=== PATIENT | female | born 1995 | race Caucasian/White ===

== ENCOUNTER → 2016-06-03 | Outpatient (CLI) | payer OTHER ==
--- NOTE | 2016-06-03 12:50 | REP ---
OBSTETRIC SONOGRAPHY: HISTORY: Supervision of , followup anatomy. FINDINGS: Scanning through the gravid uterus demonstrates a viable single intrauterine gestation in a cephalic lie. motion is observed and heart rate is recorder 144 beats per minute. A grade 0 posterior placenta is seen without evidence of previa or abruption. Amniotic fluid is subjectively normal. Closed cervical length is 3.5 cm. No extrauterine abnormality is observed. There has been appropriate interval growth. Facial profile is seen and appears normal but nose and lips are less than optimally seen today. Similarly, we were unable to adequately visualized four-chamber heart and outflow tract views today. The following additional anatomic structures are identified and felt to be sonographically unremarkable: cranium, choroid plexus, cavum, cerebellum and posterior fossa, lungs, diaphragm, left-sided stomach, abdominal wall cord insertion, three-vessel umbilical cord, kidneys and bladder, spine, upper and lower extremities. Biometry Chart: BPD 5.0 cm = 21 weeks 1 day HC 18.3 cm = 20 weeks 5 days AC 15.8 cm = 20 week 6 days FL 3.5 cm = 21 weeks 1 day HL 3.5 cm = 21 weeks 6 days CD 2.2 cm = 20 weeks 5 days HC/AC ratio normal 1.16. Cephalic index normal 0.77. Estimated weight 392 grams, 0 pounds 13 ounces, 60th percentile for 20 weeks 4 days. IMPRESSION: Viable single intrauterine gestation at 21 weeks 1 day by today's composite sonographic criteria. Expected gestational age estimate based on prior sonography is 20 weeks 4 days. STEPHANIE by prior sonography October 17, 2016. Signed by Moses Avila MD 06/03/2016 01:37 P
== END | disposition home or self-care (01) ==
LOC: M RAD 10:11
PROVIDERS: ATTEND Specialist
DX: Z34.82 Encounter for supervision of other normal pregnancy, second trimester (principal); Z36 Encounter for antenatal screening of mother; Z3A.20 20 weeks gestation of pregnancy

== ENCOUNTER → 2016-06-27 | Outpatient (CLI) | payer OTHER ==
--- NOTE | 2016-06-28 02:47 | REP ---
Clinical: Anatomical evaluation. Comparison: 06/03/2016 . Findings: Examination demonstrates a single live intrauterine in variable presentation. motion is identified by technologist. Placenta is noted posterior fundally and grade zero without evidence for placenta previa or abruption. Amniotic fluid volume is normal. Cervix measures 4.0 cm in length and appears closed. No evidence for nuchal cord. Gestational age by LMP 24 weeks 0 days with STEPHANIE 10/17/2016 . Gestational age by current measurements 24 weeks 4 days with STEPHANIE 10/13/2016 . FHR equals 144 beats per minute. Estimated weight 735 grams ( 68th percentile). Anatomical assessment demonstrates normal structures including cranium, choroid plexus, cavum, cerebellum/posterior fossa, facial features, lungs, diaphragm, stomach, cord insertion/three-vessel cord, kidneys/bladder, spine, and extremities. Impression: Single live intrauterine in variable presentation demonstrating appropriate interval growth. Limited evaluation of the heart and left ventricular outflow tract again noted. Remainder of the anatomical assessment is complete and normal. Signed by Lucian Rocha MD 06/28/2016 02:39 A
== END | disposition home or self-care (01) ==
LOC: M RAD 18:02
PROVIDERS: ATTEND Specialist
DX: Z34.82 Encounter for supervision of other normal pregnancy, second trimester (principal); Z36 Encounter for antenatal screening of mother; Z3A.24 24 weeks gestation of pregnancy

== ENCOUNTER → 2016-07-16 | Outpatient (CLI) | payer OTHER ==
--- NOTE | 2016-07-17 08:38 | REP ---
OBSTETRIC SONOGRAPHY: HISTORY: Supervision of for anatomy at 26 weeks. Comparison sonography July 07, 2016. TODAY'S SONOGRAPHIC FINDINGS: Scanning through the gravid uterus demonstrates a viable single intrauterine gestation in a cephalic lie. motion is observed and heart rate is recorder 150 beats per minute. A posterior grade 0 placenta is seen without evidence of previa or abruption. Amniotic fluid is subjectively normal. Closed cervical length is 4.0 cm, measured transabdominally. No extrauterine abnormality is observed. There has been appropriate interval growth. No anomaly is seen. spine is less than optimally seen today due to position but was previously visualized. The following additional anatomic structures are identified today and felt to be sonographically unremarkable: cranium, choroid plexus, cavum, cerebellum and posterior fossa, nuchal fold, face and profile, lungs, four-chamber heart with left and right ventricular outflow tract views, diaphragm, left-sided stomach, abdominal wall cord insertion, three-vessel umbilical cord, kidneys and bladder, upper and lower extremities. Biometry Chart: BPD 6.8 cm = 27 weeks 3 days HC 25.0 cm = 27 weeks 1 day ACl 23.0 cm = 27 weeks 3 days FL 5.1 cm = 27 weeks 2 days HL 4.8 cm = 28 weeks 2 days HC/AC ratio normal 1.09. Cephalic index normal 0.76. Estimated weight 1059 grams, 2 pounds 5 ounces, 59th percentile for 26 weeks 5 days. IMPRESSION: Viable single intrauterine gestation at 27 weeks 3 days by today's composite sonographic criteria. Expected gestational age estimate based on prior sonography is 26 weeks 5 days. STEPHANIE by prior sonography October 17, 2016. anatomic survey is felt to be complete in conjunction with the prior study. Signed by Moses Avila MD 07/17/2016 02:47 P
== END ==
LOC: M RAD 16:04
PROVIDERS: ATTEND Specialist
DX: Z34.83 Encounter for supervision of other normal pregnancy, third trimester (principal); Z36 Encounter for antenatal screening of mother; Z3A.27 27 weeks gestation of pregnancy

== ENCOUNTER → 2016-07-30 | Outpatient (CLI) | payer OTHER ==
[2016-07-30 15:35] LABS: BASO % 0.1 % (0.0-1.0); EOS # 0.1 K/mm3 (0.0-0.50); LARGE UNSTAINED CELL # 0.1 K/mm3 (0.0-0.4); LARGE UNSTAINED CELL % 1.5 % (0.0-4.0); LYMPH # 1.9 K/mm3 (1.5-6.5); LYMPH % 24.6 % (24.0-44.0); MEAN CORPUSCULAR HEMOGLOBIN 31.7 pg (27.0-33.0); MEAN CORPUSCULAR HGB CONC 34.3 g/dl (32.0-36.5); MEAN CORPUSCULAR VOLUME 92.6 fl (80.0-96.0); MONO # 0.3 K/mm3 (0.0-0.8); MONO % 4.2 % (0.0-5.0); NEUTROPHILS % 68.5 % (36.0-66.0); PLATELET COUNT, AUTOMATED 211 k/mm3 (150-450); WHITE BLOOD COUNT 7.4 K/mm3 (4.0-10.0)
== END ==
LOC: M SMT 12:59
PROVIDERS: ATTEND Specialist
DX: Z34.83 Encounter for supervision of other normal pregnancy, third trimester (principal); Z36 Encounter for antenatal screening of mother; Z3A.00 Weeks of gestation of pregnancy not specified

== ENCOUNTER 2016-08-21 11:40 | Observation (INO) | payer OTHER ==
[2016-08-21] VITALS (7 sets, daily range): BP systolic 115–158; BP diastolic 61–89
[~2016-08-21] VITALS: Ht 160 cm; Wt 103.0 kg
[2016-08-21] MEDS ORDERED: TYLE325T5 PO (11:48)
[2016-08-21] MEDS ORDERED: PRENTAB9 PO (11:48)
[2016-08-21] MEDS ORDERED: LR 1,000 ML IV SCH (12:38)
[2016-08-21] MEDS ORDERED: PERCOCET 5MG/325MG TAB PO PRN (12:45)
--- NOTE | 2016-08-21 14:40 | REP ---
RENAL ULTRASOUND: Real-time sonographic evaluation of the kidneys is performed. The kidneys are normal in size and echotexture, right kidney measuring 12.6 x 4.9 x 5.8 cm and the left kidney 13.3 x 6.6 x 7.4 cm. There is no hydronephrosis on the right. Questionable subcentimeter intrarenal calculus is seen in the lower pole of the right kidney. Left kidney demonstrates moderate hydronephrosis. Calculus is seen on the left lower pole collecting system measuring approximately 5 x 7 mm. Questionable subcentimeter stone is seen in the proximal left ureter. The urinary bladder is empty. Attempts were made to visualize the bladder and distal ureters with endovaginal ultrasound, but this region is not well visualized. IMPRESSION: Moderate left hydronephrosis. Subcentimeter stone left lower pole collecting system. Questionable subcentimeter stone proximal left ureter. Signed by Michael Jauregui MD 08/21/2016 05:40 P
[2016-08-21] MEDS ORDERED: PROMETHAZINE INJ 25 MG/ML VIAL (J2550) IV ONE (16:00)
[2016-08-21] MEDS ORDERED: BUTORPHANOL 2 MG/ML INJ (J0595) IV ONE (16:00)
--- NOTE | 2016-08-21 16:23 | HPE ---
DATE OF ADMISSION: 08/21/2016 21-year-old, 1 female at 31 and 6/7 weeks gestation by last menstrual period and consistent with 7 week ultrasound, estimated date of confinement (EDC) of 10/17/2016, presents with one week of intermittent sharp left sided upper abdominal pain that radiates down to her groin. She also has pain in her left flank area. The pain became increasingly severe, which caused her to present to the hospital. When the pain becomes severe, she vomits due to severe pain. She denies fever or chills. She has never had this pain before. MEDICAL HISTORY: Noncontributory. SURGICAL HISTORY: Tonsillectomy in 2011. SOCIAL HISTORY: The patient is . She denies cigarettes or alcohol during . She did use E-cigarettes prior to . FAMILY HISTORY: Noncontributory. PHYSICAL EXAMINATION: Blood pressure 128/75, pulse 105, temperature 98.1, respiratory rate 20. She appears uncomfortable. HEAD AND NECK EXAM: Normal. LUNGS: Clear. HEART: Regular rate and rhythm. ABDOMEN: Nontender. She has pain in her left flank, costovertebral angle tenderness. There is tenderness in her left upper abdomen at the mid axillary line. The uterus is nontender. heart tones are category 1. Cervix is long, closed, posterior. No contractions. EXTREMITIES: Nontender. LABORATORY DATA: Blood type O positive, Rubella immune. RPR nonreactive. Hepatitis B and C negative. White blood count 6.9. Ultrasound shows moderate hydronephrosis of the left kidney with 5 to 7 mm stone in the inferior pole of the left kidney and possible stone in the proximal ureter. ASSESSMENT: 21-year-old 1, para 0 female at 31 and 6/7 weeks gestation with symptomatic nephrolithiasis on the left. PLAN: IV hydration, as well as pain management. Dr. Faulkner from urology has been consulted to consider possible nephrostomy tube for relief of renal obstruction. The patient will be admitted at this point for pain control.
[2016-08-21] MEDS ORDERED: BUTORPHANOL 2 MG/ML INJ (J0595) IV PRN (17:15)
[2016-08-21] MEDS ORDERED: PROMETHAZINE INJ 25 MG/ML VIAL (J2550) IV PRN (17:15)
[2016-08-21] MEDS ORDERED: cefTRIAXone SOD 1 GM VIAL (J0696) IM SCH (17:15)
[2016-08-21] MEDS ORDERED: ACETAMINOPHEN TAB 650MG DOSE (2X325MG) PO PRN (17:15)
[2016-08-21] MEDS: cefTRIAXone SOD 1 GM in D5W MINI-BAG PLUS 50 ML IV SCH (18:23)
[2016-08-21] MEDS: DOCUSATE SODIUM 100 MG CAP PO SCH (20:48)
[2016-08-22 06:19] VITALS: BP 118/64
[2016-08-22] MEDS: DOCUSATE SODIUM 100 MG CAP PO SCH ×2 (07:25→20:20)
[2016-08-22] MEDS: LR 1,000 ML IV SCH ×3 (09:15→20:20)
[2016-08-22] MEDS ORDERED: LACTATED RINGER'S 1000 ML IV ONE (09:15)
--- NOTE | 2016-08-22 09:44 | REP ---
RENAL AND BLADDER ULTRASOUND: Real-time sonographic evaluation of kidneys performed. Kidneys are normal in size and echotexture, right kidney measuring 12.6 x 6.7 x 7.0, and left kidney 13.8 x 7.3 x 5.9 cm. There is mild right hydronephrosis. There is no right-sided nephrolithiasis seen. There is stable moderate left hydronephrosis. Calculus is again seen in the lower pole of the left renal collecting system. Duplex Doppler evaluation demonstrates resistive index right kidney 0.63 and left kidney 0.74. Urinary bladder is minimally distended. There appears to be a subcentimeter calculus at the left ureterovesical junction. With Doppler color evaluation, there is a left ureteral jet present indicating that the left ureter is not completely obstructed. IMPRESSION: Mild right hydronephrosis. No change in moderate left hydronephrosis. Calculus seen at the left ureterovesical junction. There is a left ureteral jet noted indicating that there is not complete ureteral obstruction. Signed by Michael Jauregui MD 08/22/2016 04:50 P
[2016-08-22 16:55] VITALS: BP 129/71
[2016-08-22] MEDS: cefTRIAXone SOD 1 GM in D5W MINI-BAG PLUS 50 ML IV SCH (19:04)
[2016-08-22 20:00] VITALS: BP 144/66
[2016-08-23] VITALS: BP 130/67
[2016-08-23] MEDS: LR 1,000 ML IV SCH ×3 (00:56→10:15)
[2016-08-23 04:00] VITALS: BP 135/73
[2016-08-23 08:00] VITALS: BP 132/60
[2016-08-23] MEDS: DOCUSATE SODIUM 100 MG CAP PO SCH (08:54)
[2016-08-23] MEDS ORDERED: COLA100C3 PO (11:22)
== END 2016-08-23 11:40 | disposition home or self-care (01) ==
LOC: M LDO 11:40 → M OBS 17:39 → M PED 08-22 17:12
PROVIDERS: ADMIT Specialist; ATTEND Specialist
DX: O26.833 Pregnancy related renal disease, third trimester (principal); N20.0 Calculus of kidney; N13.30 Unspecified hydronephrosis; Z3A.31 31 weeks gestation of pregnancy
CPT/HCPCS: 59025; 76775; 85025; 96365; 96375; 96376; J0595; J0696

== ENCOUNTER → 2016-09-06 | Outpatient (CLI) | payer OTHER ==
[~2016-09-06] MED LIST: COLA100C3 PO; PRENTAB9 PO; TYLE325T5 PO
[2016-09-06 18:23] LABS: ALBUMIN 2.5 GM/DL (3.2-5.2); ALBUMIN/GLOBULIN RATIO 0.68 (1.00-1.93); BILIRUBIN,DIRECT 0.1 MG/DL (0.0-0.2); BILIRUBIN,TOTAL 0.3 MG/DL (0.2-1.0); TOTAL PROTEIN 6.2 GM/DL (6.4-8.2)
== END ==
LOC: M SMT 15:39
PROVIDERS: ATTEND Advanced Practice Midwife
DX: R21 Rash and other nonspecific skin eruption (principal)

== ENCOUNTER → 2016-09-11 | Outpatient (CLI) | payer OTHER ==
--- NOTE | 2016-09-12 04:56 | REP ---
Clinical: Growth discrepancy . Comparison: 07/16/2016 . Findings: Examination demonstrates a single live intrauterine in cephalic presentation. motion is identified by technologist. Placenta is noted posteriorly and grade II without evidence for placenta previa or abruption. Amniotic fluid volume is normal. Cervix appears closed. No evidence for nuchal cord. Gestational age by LMP 34 week 6 days with STEPHANIE 10/17/2016 . Gestational age by current measurements 36 weeks 1 day with STEPHANIE 10/08/2016 . FHR equals 144 beats per minute. BPD 8.9 cm 36 weeks 1 day HC 32.0 cm 36 weeks 0 days AC 33.2 cm 37 weeks 1 day FL 7.0 cm 36 weeks 0 days HL 6.1 cm 35 weeks 1 day HC/AC ratio 0.96 Estimated weight 2989 grams ( 80th percentile). Amniotic fluid index equals 12.0 cm (7.9 - 24.9) Umbilical cord SD ratio equals 2.16 (2.00 - 3.00). Impression: Single live advanced gestation in cephalic presentation. Estimated weight within normal range. Amniotic fluid index normal. No gross abnormalities are identified. Signed by Lucian Rocha MD 09/12/2016 04:47 A
== END ==
LOC: M RAD 10:16
PROVIDERS: ATTEND Advanced Practice Midwife
DX: O26.843 Uterine size-date discrepancy, third trimester (principal); Z36 Encounter for antenatal screening of mother; Z3A.36 36 weeks gestation of pregnancy

== ENCOUNTER → 2016-09-25 | Outpatient (REF) | payer OTHER | LOC: M LAB REF 16:56 | PROVIDERS: ATTEND Specialist | DX: Z34.83 Encounter for supervision of other normal pregnancy, third trimester (principal) ==

== ENCOUNTER 2016-10-06 13:00 | Outpatient (CLI) | payer OTHER ==
[~2016-10-06] VITALS: Ht 162.6 cm; Wt 110.0 kg
[2016-10-06 13:14] VITALS: BP 139/80
== END 2016-10-06 14:01 | disposition home or self-care (01) ==
LOC: M LDO 13:00
PROVIDERS: ATTEND Advanced Practice Midwife
DX: O36.8130 Decreased fetal movements, third trimester, not applicable or unspecified (principal); Z3A.39 39 weeks gestation of pregnancy

== ENCOUNTER 2016-10-11 09:00 | Inpatient (IN) | payer OTHER ==
[2016-10-11] VITALS (45 sets, daily range): BP systolic 112–189; BP diastolic 57–108
[~2016-10-11] VITALS: Ht 162.6 cm; Wt 110.0 kg
[2016-10-11] MEDS ORDERED: LR 1,000 ML IV SCH (10:24)
[2016-10-11] MEDS ORDERED: MAG Sulf (L&D) 4 GM/100 ML 4 GM in APPROPRIATE DILUENT 1 EA IV ONE (10:30)
[2016-10-11] MEDS ORDERED: OXYTOCIN DRIP 30 UNITS in APPROPRIATE DILUENT 1 EA IV SCH (10:30)
[2016-10-11] MEDS ORDERED: LABETALOL HCL 100 MG/20 ML VIAL IV STA (10:39)
--- NOTE | 2016-10-11 10:46 | HPE ---
DATE OF ADMISSION: 10/11/2016 HISTORY: 21-year-old, (G) 1, para (P) 0 female, at 39-1/7 weeks gestation, by last menstrual period (LMP), consistent with 7 week ultrasound, estimated date of confinement (EDC) 10/17/2016, presents with regular uterine contractions every 3-4 minutes since 4 a.m. on the day of admission and contractions increased in intensity. She does admit to seeing spots in front of her eyes at times. She has worsening lower extremity edema during the past 24 hours. COURSE: The patient initiated care at 9 weeks gestation on 03/18/2016. Patient was admitted at 31 weeks on 08/21/2016 with symptomatic left renal stones. She was observed overnight. She passed the renal stones spontaneously and did not require intervention. Remainder of course is unremarkable til the end. MEDICAL HISTORY: Noncontributory. SURGICAL HISTORY: Tonsillectomy. ALLERGIES: None. SOCIAL HISTORY: The patient denies cigarettes, alcohol or drug use during . She is . FAMILY HISTORY: Patient is adopted and does not know her personal family history. PHYSICAL EXAMINATION: Blood pressure 179/108. Pulse 101. Temperature 98.7. Respiratory rate 16. She appears uncomfortable. She has mild facial edema present. Head and neck exam otherwise normal. Lungs: Clear. Heart: Regular rate and rhythm. Abdomen: Nontender, gravid. heart tones category 1. Contractions every 3-5 minutes. Cervix: 3 cm, 100% and -2 station, vertex intact. Extremities: Nontender. 2+ lower extremity edema. Deep tendon reflexes 1+. LABORATORIES: Blood type O positive, rubella immune. RPR nonreactive. Hepatitis B and C negative. Diabetes screen 110. GBS negative 09/25/2016. ASSESSMENT: 21-year-old, 1, at 39-1/7 weeks gestation, presents in early labor. She has elevated blood pressures concerning for possible preeclampsia. Patient is admitted on 10/11/2016 for labor. Preeclampsia evaluation will be undertaken. Patient may require both antihypertensive as well as magnesium sulfate.
[2016-10-11 10:50] LABS: MEAN CORPUSCULAR HEMOGLOBIN 29.8 pg (27.0-33.0); MEAN CORPUSCULAR HGB CONC 35.1 g/dl (32.0-36.5); MEAN CORPUSCULAR VOLUME 84.9 fl (80.0-96.0); RED CELL DISTRIBUTION WIDTH 15.3 % (11.5-14.5); WHITE BLOOD COUNT 8.2 K/mm3 (4.0-10.0)
[2016-10-11] MEDS ORDERED: MAG Sulf (OBGYN) 20GM/500ML 20,000 MG in APPROPRIATE DILUENT 1 EA IV SCH (10:50)
[2016-10-11 11:10] LABS: ALT/SGPT 31 U/L (12-78); AST/SGOT 22 U/L (15-37); BILIRUBIN,TOTAL 0.3 MG/DL (0.2-1.0); CREATININE FOR GFR 0.59 MG/DL (0.55-1.02); GLOMERULAR FILTRATION RATE > 60.0 (>60); URIC ACID 4.7 MG/DL (2.6-6.0)
[2016-10-11] MEDS ORDERED: AZITHROMYCIN INJ 500 MG, VIAL MATE ADAPTER 1 EACH in D5W 250 ML IV ONE (11:15)
[2016-10-11] MEDS ORDERED: FENTANYL 2MCG/ML ROPIVACAINE 0.2% IN 0.9% NACL 200ML IVBAG As Ordered ONE (13:22)
[2016-10-11] MEDS ORDERED: REFRIGERATOR IV KEYS XX PRN (14:15)
[2016-10-11] MEDS ORDERED: diphenhydrAMINE INJ 50MG/ML VIAL (J1200) IV PRN (14:15)
[2016-10-11] MEDS ORDERED: ONDANSETRON 4MG/2ML VIAL (J2405) IV PRN (14:15)
[2016-10-11] MEDS ORDERED: FENTANYL/ROPIVACAINE/NACL BAG 200 ML EPIDURAL SCH (14:15)
[2016-10-11] MEDS ORDERED: EPIDURAL/PCA KEYS XX PRN (14:15)
[2016-10-11] MEDS ORDERED: NALOXONE INJ 0.4 MG/1 ML VIAL (J2310) IV PRN (14:15)
[2016-10-11] MEDS ORDERED: ePHEDrine SULFATE 25 MG/5 ML(5MG/ML) SYRINGE IV PRN (14:15)
[2016-10-11] MEDS ORDERED: LACTATED RINGER'S 1000 ML IV PRN (14:15)
[2016-10-11] MEDS ORDERED: EPIDURAL COMMENT XX SCH (14:15)
[2016-10-11] MEDS ORDERED: ceFAZolin 2 GM/D5W 50 ML IV BAG (J0690) As Ordered ONE (23:20)
[2016-10-11] MEDS ORDERED: BICITRA 30ML SOLN UDC As Ordered ONE (23:20)
[2016-10-11] MEDS ORDERED: OXYTOCIN INJ 10 UNITS/ML VIAL (J2590) As Ordered ONE (23:33)
[2016-10-11] MEDS ORDERED: LIDOCAINE PRES-FREE 2% 10ML AMP As Ordered ONE (23:34)
[2016-10-12] VITALS (28 sets, daily range): BP systolic 115–178; BP diastolic 63–103
[2016-10-12] MEDS ORDERED: MIDAZOLAM INJ 2 MG/2 ML VIAL (J2250) As Ordered ONE (00:05)
[2016-10-12] MEDS ORDERED: MORPHINE PRES-FREE INJ 10 MG/10 ML VIAL (J2274) As Ordered ONE (00:21)
[2016-10-12] MEDS ORDERED: PHENYLephrine HCL 500 MCG/5 ML (100MCG/ML) SYRINGE (J2370) As Ordered ONE (00:25)
[2016-10-12] MEDS ORDERED: ePHEDrine SULFATE 25 MG/5 ML(5MG/ML) SYRINGE As Ordered ONE (00:25)
[2016-10-12] MEDS ORDERED: METOCLOPRAMIDE INJ 10MG/2ML VIAL (J2765) IV PRN ×2 (00:35→01:15)
[2016-10-12] MEDS ORDERED: ONDANSETRON 4MG/2ML VIAL (J2405) IV PRN ×3 (00:35→01:15)
[2016-10-12] MEDS ORDERED: NALOXONE INJ 0.4 MG/1 ML VIAL (J2310) IV PRN ×2 (00:35)
[2016-10-12] MEDS ORDERED: NALBUPHINE HCL 10 MG/ML AMP (J2300) IV PRN (00:35)
[2016-10-12] MEDS ORDERED: KETOROLAC 60 MG/2 ML VIAL (J1885) As Ordered ONE (00:42)
[2016-10-12] MEDS: LR 1,000 ML IV SCH ×2 (01:01→09:01)
[2016-10-12] MEDS ORDERED: MAG Sulf (OBGYN) 20GM/500ML 20,000 MG in APPROPRIATE DILUENT 1 EA IV SCH (01:04)
[2016-10-12] MEDS ORDERED: OXYC1TAB23 PO (01:09)
[2016-10-12] MEDS ORDERED: MEASLES,MUMPS,RUBELLA VACCINE INJ (MMR-II) (90707) SC SCH (01:15)
[2016-10-12] MEDS ORDERED: RHOGAM 300 MCG (1500 IU) INJ (J2790) IM SCH (01:15)
[2016-10-12] MEDS ORDERED: DOCUSATE SODIUM 100 MG CAP PO PRN (01:15)
[2016-10-12] MEDS ORDERED: fentaNYL 100 MCG/2 ML INJECTION (J3010) IV PRN (01:15)
[2016-10-12] MEDS ORDERED: LR 1,000 ML IV SCH (01:15)
[2016-10-12] MEDS ORDERED: OXYTOCIN DRIP 30 UNITS in APPROPRIATE DILUENT 1 EA IV ONE (01:15)
[2016-10-12] MEDS ORDERED: PERCOCET 5MG/325MG TAB PO PRN ×3 (01:15)
[2016-10-12] MEDS: KETOROLAC 30 MG/ML VIAL (J1885) IV SCH ×3 (06:59→18:36)
[2016-10-12] MEDS: PRENATAL VITAMIN TAB PO SCH (09:00)
[2016-10-12 09:03] LABS: MEAN CORPUSCULAR HEMOGLOBIN 29.4 pg (27.0-33.0); MEAN CORPUSCULAR HGB CONC 34.3 g/dl (32.0-36.5); MEAN CORPUSCULAR VOLUME 85.5 fl (80.0-96.0); RED CELL DISTRIBUTION WIDTH 15.2 % (11.5-14.5); WHITE BLOOD COUNT 9.5 K/mm3 (4.0-10.0)
[2016-10-12] MEDS: NORCO, ANEXSIA 5/325MG TABLET (HYDROcodone/ACETAMINOPHEN) PO PRN ×2 (09:28→15:01)
--- NOTE | 2016-10-12 09:30 | RO ---
DATE OF PROCEDURE: 10/12/2016 PREOPERATIVE DIAGNOSIS: 39 weeks gestation, preeclampsia, arrest of descent. POSTOPERATIVE DIAGNOSIS: 39 weeks gestation, preeclampsia, arrest of descent. PROCEDURE: Primary low transverse section. SURGEON: Darshan Santo MD TRAP OPERATOR: ANESTHESIA: Epidural. ESTIMATED BLOOD LOSS: 800 mL. URINE OUTPUT: 200 mL. FINDINGS: 8 pound 0 ounce female , scores 8 and 9, left occiput transverse position. Normal uterus, fallopian tubes and ovaries. DESCRIPTION OF PROCEDURE/OPERATIVE SUMMARY: Patient was taken to the operating room where epidural anesthesia was found to be adequate. Arias catheter was already in place. The patient was prepped and draped in a sterile fashion in supine position. Pfannenstiel skin incision was made with a scalpel through to the fascia. The fascia was nicked and extended. The peritoneal cavity was entered. A bladder flap was created. A curvilinear incision was made in the lower uterine segment until clear fluid was noted. This was extended manually. The infant was delivered from the vertex position without difficulty. The cried spontaneously. The cord was doubly clamped and cut. The was handed to the waiting nurses. Placenta was expressed. The uterus was exteriorized and cleared of all clots and debris. The uterine incision was closed with #0 Vicryl in a running locked fashion. A second imbricating layer of #0 Vicryl was placed. The uterus was placed back in the abdominal cavity. The perineum was closed with #2-0 Vicryl in a running fashion. The fascia was closed with #0 Vicryl. The deep layer was irrigated and closed with #3-0 chromic. The skin was #4-0 Monocryl subcuticular sutures. Sponge, instrument and needle counts were correct.
[2016-10-13] MEDS: KETOROLAC 30 MG/ML VIAL (J1885) IV SCH (01:15)
[2016-10-13] MEDS: NORCO, ANEXSIA 5/325MG TABLET (HYDROcodone/ACETAMINOPHEN) PO PRN ×4 (01:41→22:03)
[2016-10-13 01:45] VITALS: BP 141/75
[2016-10-13 05:49] VITALS: BP 133/75
[2016-10-13 06:33] LABS: MEAN CORPUSCULAR HEMOGLOBIN 29.4 pg (27.0-33.0); MEAN CORPUSCULAR HGB CONC 33.5 g/dl (32.0-36.5); MEAN CORPUSCULAR VOLUME 87.7 fl (80.0-96.0); RED CELL DISTRIBUTION WIDTH 15.6 % (11.5-14.5); WHITE BLOOD COUNT 7.9 K/mm3 (4.0-10.0)
[2016-10-13] MEDS: IBUPROFEN 800 MG TAB PO SCH ×2 (09:31→17:04)
[2016-10-13] MEDS ORDERED: HYDR-3713 PO (09:31)
[2016-10-13] MEDS: PRENATAL VITAMIN TAB PO SCH (09:33)
[2016-10-13 10:00] VITALS: BP 143/86
[2016-10-13] MEDS: PIPERACILLIN/TAZOBACTAM SOD 3.375 GM in D5W MINI-BAG PLUS 50 ML IV SCH ×2 (12:14→20:15)
[2016-10-13 14:00] VITALS: BP 140/84
[2016-10-13 18:00] VITALS: BP 145/90
[2016-10-13 22:01] VITALS: BP 141/88
[2016-10-14] MEDS: IBUPROFEN 800 MG TAB PO SCH ×3 (01:05→17:02)
[2016-10-14 02:46] VITALS: BP 161/89
[2016-10-14] MEDS: PIPERACILLIN/TAZOBACTAM SOD 3.375 GM in D5W MINI-BAG PLUS 50 ML IV SCH ×3 (04:06→20:44)
[2016-10-14 06:04] VITALS: BP 138/85
[2016-10-14] MEDS: PRENATAL VITAMIN TAB PO SCH (09:08)
[2016-10-14] MEDS: NORCO, ANEXSIA 5/325MG TABLET (HYDROcodone/ACETAMINOPHEN) PO PRN ×2 (09:10→17:03)
[2016-10-14 10:15] VITALS: BP 147/88
[2016-10-14 14:12] VITALS: BP 146/79
[2016-10-14 18:02] VITALS: BP 166/77
[2016-10-14 22:04] VITALS: BP 145/89
[2016-10-15] MEDS: IBUPROFEN 800 MG TAB PO SCH ×2 (01:36→09:52)
[2016-10-15] MEDS: NORCO, ANEXSIA 5/325MG TABLET (HYDROcodone/ACETAMINOPHEN) PO PRN ×2 (01:36→09:51)
[2016-10-15 02:17] VITALS: BP 145/79
[2016-10-15] MEDS: PIPERACILLIN/TAZOBACTAM SOD 3.375 GM in D5W MINI-BAG PLUS 50 ML IV SCH (04:36)
[2016-10-15] MEDS: PRENATAL VITAMIN TAB PO SCH (09:50)
[2016-10-15] MEDS ORDERED: IBUP-1114 PO (10:03)
== END 2016-10-15 12:10 | disposition home or self-care (01) | DRG 766 ==
LOC: M LDO 09:00 → M LDI 09:32 → M OBS 10-12 15:19
PROVIDERS: ADMIT Specialist; ATTEND Specialist
PROC: 10D00Z1 Extraction of Products of Conception, Low, Open Approach (ICD-10-PCS; principal; 2016-10-12)
DX: O14.94 Unspecified pre-eclampsia, complicating childbirth (principal); Z3A.39 39 weeks gestation of pregnancy; O32.2XX0 Maternal care for transverse and oblique lie, not applicable or unspecified; O86.12 Endometritis following delivery; Z37.0 Single live birth

== ENCOUNTER 2017-08-18 06:51 | Emergency (ER) | payer OTHER, SELFPAY ==
[2017-08-18] MEDS: MORPHINE 4 MG/ML 1ML VIAL/SYRINGE (J2270) IV ×4 (07:34→08:56)
[2017-08-18] MEDS: NS 1,000 ML IV ×2 (07:38)
[2017-08-18] MEDS: ONDANSETRON 4MG/2ML VIAL (J2405) IV ×2 (07:38)
[2017-08-18 07:42] LABS: BASO % 0.2 % (0.0-1.0); EOS % 0.1 % (0.0-3.0); HEMATOCRIT 38.8 % (36.0-47.0); HEMOGLOBIN 13.2 g/dl (12.0-15.5); IMMATURE GRANULOCYTE % 0.2 % (0-3.0); LYMPH # 1.2 10^3/uL (1.5-6.5); MEAN CORPUSCULAR HEMOGLOBIN 29.5 pg (27.0-33.0); MEAN CORPUSCULAR VOLUME 86.8 fl (80.0-96.0); MONO # 0.3 10^3/uL (0.0-0.8); MONO % 3.4 % (0.0-5.0); NEUTROPHILS # 7.5 10^3/uL (1.8-7.7); NEUTROPHILS % 83.1 % (36.0-66.0); PLATELET COUNT, AUTOMATED 271 10^3/uL (150-450); RED BLOOD COUNT 4.47 10^6/uL (4.00-5.40); RED CELL DISTRIBUTION WIDTH 13.2 % (11.5-14.5)
[2017-08-18 07:55] LABS: ALBUMIN 4.1 GM/DL (3.2-5.2); ALBUMIN/GLOBULIN RATIO 0.98 (1.00-1.93); ALKALINE PHOSPHATASE 97 U/L (45-117); ALT/SGPT 19 U/L (12-78); AMYLASE 74 U/L (25-115); ANION GAP 5 MEQ/L (8-16); AST/SGOT 8 U/L (7-37); BILIRUBIN,DIRECT < 0.1 MG/DL (0.0-0.2); BILIRUBIN,TOTAL 0.3 MG/DL (0.2-1.0); BLOOD UREA NITROGEN 16 MG/DL (7-18); CALCIUM LEVEL 8.7 MG/DL (8.5-10.1); CARBON DIOXIDE LEVEL 25 MEQ/L (21-32); CHLORIDE LEVEL 109 MEQ/L (98-107); CREATININE FOR GFR 0.81 MG/DL (0.55-1.30); GLOMERULAR FILTRATION RATE > 60.0 (>60); GLUCOSE, FASTING 114 MG/DL (70-100); KETONE, URINE AUTO RFX NEGATIVE (NEGATIVE); LEUKOCYTE ESTERASE UR AUTO RFX NEGATIVE (NEGATIVE); LIPASE 113 U/L (73-393); MUCUS, URINE RFX SMALL (NEGATIVE); NITRITE, URINE AUTO RFX NEGATIVE (NEGATIVE); POTASSIUM SERUM 3.8 MEQ/L (3.5-5.1); RBC, URINE AUTO RFX 50 /HPF (0-3); SODIUM LEVEL 139 MEQ/L (136-145); SPECIFIC GRAVITY UR AUTO RFX 1.032 (1.002-1.035); SQUAM EPITHELIAL CELL UR AURFX 1 /HPF (0-6); TOTAL PROTEIN 8.3 GM/DL (6.4-8.2); WBC, URINE AUTO RFX 1 /HPF (0-3)
[2017-08-18] MEDS: METOCLOPRAMIDE INJ 10MG/2ML VIAL (J2765) IV ×2 (08:56)
== END 2017-08-18 10:35 | disposition home or self-care (01) ==
LOC: M ED 06:51
DX: N20.1 Calculus of ureter (principal); N13.30 Unspecified hydronephrosis; Z88.5 Allergy status to narcotic agent
CPT/HCPCS: J2270

== ENCOUNTER → 2018-06-30 | Outpatient (REF) | payer OTHER, MEDICAID ==
[~2018-06-30] MED LIST changes: -COLA100C3 PO; +COLA100C5 PO; +FLOM0.4C39 PO; +HYDR-3713 PO; +IBUP-1114 PO; +IBUP80TA PO; +NORCOTAB PO; +OXYC1TAB23 PO; +ZOFR4TAB14 PO
[2018-06-30 15:02] LABS: CHLAMYDIA DNA AMPLIFICATION NEGATIVE (NEGATIVE); GC DNA AMPLIFICATION NEGATIVE (NEGATIVE)
== END ==
LOC: M LAB REF 12:56
PROVIDERS: ATTEND Specialist
DX: Z12.4 Encounter for screening for malignant neoplasm of cervix (principal); Z11.3 Encounter for screening for infections with a predominantly sexual mode of transmission

== ENCOUNTER 2018-09-09 15:57 | Emergency (ER) | payer MEDICAID, OTHER ==
[~2018-09-09] VITALS: Ht 154.9 cm; Wt 101.2 kg
[~2018-09-09 15:57] MED LIST changes: +HYDR-3715 PO; -NORCOTAB PO
[2018-09-09] MEDS ORDERED: ONDANSETRON 4 MG ORAL DISINTEGRATING TAB (Q0162 PER 1MG) PO ONE (16:45)
[2018-09-09 17:00] LABS: BASO % 0.3 % (0.0-1.0); EOS # 0.1 10^3/uL (0.0-0.50); EOS % 1.2 % (0.0-3.0); HEMATOCRIT 40.7 % (36.0-47.0); HEMOGLOBIN 13.9 g/dl (12.0-15.5); LYMPH % 26.8 % (24.0-44.0); MEAN CORPUSCULAR HEMOGLOBIN 30.3 pg (27.0-33.0); MEAN CORPUSCULAR HGB CONC 34.2 g/dl (32.0-36.5); MEAN CORPUSCULAR VOLUME 88.9 fl (80.0-96.0); MONO # 0.5 10^3/uL (0.0-0.8); MONO % 6.7 % (0.0-5.0); NEUTROPHILS # 4.7 10^3/uL (1.8-7.7); NEUTROPHILS % 64.7 % (36.0-66.0); PLATELET COUNT, AUTOMATED 313 10^3/uL (150-450); RED BLOOD COUNT 4.58 10^6/uL (4.00-5.40); WHITE BLOOD COUNT 7.3 10^3/uL (4.0-10.0)
[2018-09-09 18:01] VITALS: BP 112/69
--- NOTE | 2018-09-09 19:13 | REP ---
FIRST TRIMESTER ULTRASOUND: HISTORY: Vaginal bleeding. The uterus measures 5.4 cm in transverse x 4.4 cm in AP x 8.7 cm in cephalocaudal dimensions. An intrauterine is present. Cashiers rump length is 0.2 cm corresponding to a gestational age of 5 weeks 5 days. heart rate is 109 beats per minute. There is no subchorionic hemorrhage. A cyst is present in the right ovary. This likely represents a corpus luteal cyst. There is no fluid in the cul-de-sac. IMPRESSION:There is a single intrauterine with a gestational age by ultrasound of 5 weeks 5 days. A repeat examination in 19-20 weeks is recommended for further evaluation. Electronically Signed by Darshan Shipman MD 09/09/2018 07:24 P
== END 2018-09-09 18:03 | disposition home or self-care (01) ==
LOC: M ED 15:57
DX: O20.0 Threatened abortion (principal); Z87.442 Personal history of urinary calculi; Z88.5 Allergy status to narcotic agent; Z3A.01 Less than 8 weeks gestation of pregnancy
CPT/HCPCS: 76801; 76817; 81001; 81025; 84702; 85025; 86850; 86900; 86901; 93976; 99284; Q0162